=== PATIENT | female | born 1935 | race American Indian/Alaskan Native ===

== ENCOUNTER 2017-06-27 12:48 | Inpatient (IN) | payer MEDICARE, MEDICAID ==
--- NOTE | 2017-06-27 13:32 | ED PDOC ---
Arrival/HPI - General Chief Complaint: Back Pain Time Seen by Provider: 06/27/17 12:51 Historian: Patient - History of Present Illness Narrative History of Present Illness (Text): 06/27/17 13:31 An 81 year old female, whose past medical history includes aortic aneurysm repair and hypertension, presents to the emergency department complaining of sudden onset right flank, right lower back and right abdominal region discomfort for the past 4 days. Patient states movement, changing position and muscular movement causes more pain. Patient describes pain as severe. Patient also describes left knee pain, different than her usual arthritic discomfort. Reports she ran out of her Percocet medications recently and has not had anything for relieve. Denies any trauma or sick contact. Patient arrived to the emergency department for further evaluation. Patient states she is scheduled to see her PMD next week but her pain is getting worse. Patient lives alone and has a health aide daily for 5 hours a day, and changes on weekends, but due to her worsening pain, pt is unable to care for herself today, prompting patient to call 911. Patient denies any shortness of breath, chest pain, palpitations, nausea, vomiting. urinary or bowel changes or any other complaints at this time. PMD: Dr. Levy pt lives alone pt usually ambulates with a cane pt is ambidextrous Time/Duration: Other (4 days) Symptom Onset: Sudden Symptom Course: Unchanged Activities at Onset: Rest Context: Home Past Medical History - Provider Review Nursing Documentation Reviewed: Yes - Travel History Have you recently traveled outside [place] w/in the past 3 mons?: No - Past History Past History: No Previous - Infectious Disease Hx of Infectious Diseases: None - Tetanus Immunization Tetanus Immunization: Unknown - Reproductive Menopause: Yes Currently : No - Cardiac Hx Hypertension: Yes - Pulmonary Hx Respiratory Disorders: No - Neurological Hx Neurological Disorder: Yes Hx Dizziness: Yes (SYNCOPE,VERTIGO) - HEENT Hx HEENT Disorder: No - Renal Hx Renal Disorder: No - Endocrine/Metabolic Hx Endocrine Disorders: No - Hematological/Oncological Hx Blood Disorders: No - Integumentary Hx Dermatological Disorder: No - Musculoskeletal/Rheumatological Hx Arthritis: Yes - Gastrointestinal Hx Gastrointestinal Disorders: Yes Hx Gastroesophageal Reflux: Yes - Genitourinary/Gynecological Hx Genitourinary Disorders: No - Psychiatric Hx Psychophysiologic Disorder: Yes Hx Anxiety: Yes Hx Depression: Yes Hx Emotional Abuse: No Hx Physical Abuse: No Hx Substance Use: No - Surgical History Other/Comment: AAA repair may - Anesthesia Hx Anesthesia Reactions: Yes Hx Malignant Hyperthermia: No - Suicidal Assessment Feels Threatened In Home Enviroment: No Family/Social History - Physician Review Nursing Documentation Reviewed: Yes Family/Social History: No Known Family HX Smoking Status: Former Smoker Hx Alcohol Use: Yes (H/O QUIT ETOH USE) Hx Substance Use: No Hx Substance Use Treatment: No Allergies/Home Meds Allergies/Adverse Reactions: Allergies Iodine and Iodide Containing Produc Allergy (Intermediate, Verified 06/27/17 22: 12) RASH shellfish derived Allergy (Intermediate, Verified 06/27/17 22:12) RASH tomato Allergy (Intermediate, Verified 06/27/17 22:12) RASH IV CONTRAST Allergy (Intermediate, Uncoded 06/27/17 22:12) RASH Home Medications: Home Meds Medication Instructions Recorded Confirmed Aspirin [Ecotrin] 81 mg PO DAILY 04/13/15 06/27/17 Escitalopram [Lexapro] 20 mg PO QAM 04/13/15 06/27/17 Metoprolol Tartrate 25 mg PO BID 04/13/15 06/27/17 Potassium Chloride [Klor-Con 10] 10 meq PO QAM 04/13/15 06/27/17 Pravastatin Sodium [Pravachol] 40 mg PO HS 04/13/15 06/27/17 Furosemide [Lasix] 40 mg PO DAILY 06/27/17 06/27/17 Gabapentin [Neurontin] 100 mg PO TID 06/27/17 06/27/17 Ibuprofen/Oxycodone HCl 1 tab PO Q8 PRN 06/27/17 06/27/17 [Oxycodone-Ibuprofen 5-400 Tab] Review of Systems - Physician Review All systems were reviewed & negative as marked: Yes - Review of Systems Constitutional: Normal Eyes: Normal ENT: Normal Respiratory: absent: SOB Cardiovascular: absent: Chest Pain, Palpitations Gastrointestinal: Abdominal Pain (right abd discomfort). absent: Stool Changes , Nausea, Vomiting Genitourinary Female: absent: Urine Output Changes Musculoskeletal: Back Pain (right lower back discomfort), Other (right flank discomfort; left knee pain) Skin: Normal Neurological: Normal Endocrine: Normal Hemo/Lymphatic: Normal Psychiatric: Normal Physical Exam Vital Signs Reviewed: Yes Vital Signs Temp Pulse Resp BP Pulse Ox 06/27/17 18:09 97.8 F 59 L 20 134/72 98 06/27/17 16:22 98 F 75 19 139/71 98 06/27/17 14:52 98 F 75 19 152/71 H 97 06/27/17 12:49 98.7 F 62 18 161/96 H 100 Temperature: Afebrile Blood Pressure: Hypertensive Pulse: Regular Respiratory Rate: Normal Appearance: Positive for: Well-Appearing, Non-Toxic, Uncomfortable, Other (at times uncomfortable due to right flank pain, resting in bed, alert/awake, GCS = 15, oriented x 3, cooperative) Pain Distress: None Mental Status: Positive for: Alert and Oriented X 3 - Systems Exam Head: Present: Atraumatic, Normocephalic Pupils: Present: PERRL, Other (no nystagmus, no photophobia, sclera anicteric, visual field intact b/l) Extroacular Muscles: Present: EOMI Conjunctiva: Present: Normal Ears: Present: Normal Mouth: Present: Moist Mucous Membranes, Other (fair dentitions, no drooling/ stridor, no exudate/lesions, no dysphonia) Pharnyx: Present: Normal Nose (External): Present: Atraumatic Nose (Internal): Present: Normal Inspection Neck: Present: Normal Range of Motion, Trachea Midline, Other (no step off, no midline tenderness). No: Meningeal Signs, MIDLINE TENDERNESS Respiratory/Chest: Present: Clear to Auscultation, Good Air Exchange, Other ( CTA b/l, no w/r/r, no accessory muscle use, no tachypenia). No: Respiratory Distress, Accessory Muscle Use Cardiovascular: Present: Regular Rate and Rhythm, Normal S1, S2, Other (+S1, +S2 ). No: Murmurs Abdomen: Present: Normal Bowel Sounds, Other (well nourished/obese female, + right flank/abd tenderness is noted on exam, no astorga's sign, no mcburney's point tenderness, no masses/rebound/guarding/rigidity). No: Tenderness, Distention, Peritoneal Signs Back: Present: Normal Inspection, Other (no step off). No: CVA Tenderness, Midline Tenderness Upper Extremity: Present: Normal Inspection, Normal ROM, NORMAL PULSES, Neurovascularly Intact. No: Cyanosis, Edema Lower Extremity: Present: Normal Inspection, NORMAL PULSES, Neurovascularly Intact. No: Edema Neurological: Present: GCS=15, CN II-XII Intact, Speech Normal, Other (CNII-XII WNL, no facial asymmetries, no slurr speech, oriented x 3) Skin: Present: Warm, Dry, Normal Color. No: Rashes Psychiatric: Present: Alert, Oriented x 3, Normal Insight, Normal Concentration Medical Decision Making ED Course and Treatment: 06/27/17 13:28 Impression: An 81 year old female with right flank, right lower back and right abd region discomfort. Statement: I have considered all of the differential diagnostics regarding patient's chief medical complaints/ clinical findings, including but not limited to: unlikely disection r/o aneurysm/ disection changes muscular skeletal discomfort with chronic arthritic pain unlikely appendicitis, but will check CT Assessment for A/ P -- CT angio disection -- Left knee -- Chest X-ray -- labs 06/27/17 16:45 Patient received pain medication, felt improvement of pain. 06/27/17 17:40 Patient is currently experiencing more right flank back pain, and now requesting pain assistance. 06/27/17 17:[address] Taveras, made aware of patient's medical complaints, emergency department presentation, emergency department management and diagnosis and agrees with admission. Patient will likely be placed on Medsurge. 1800 pt is unable to ambulate without assistance pt does not feel improve and expressed concern going home pt is made aware of her medical results pt agrees with admission Re-evaluation Time: 18:00 Reassessment Condition: Improving,but remains with symptoms - Lab Interpretations Lab Results: 06/27/17 13:32 06/27/17 13:32 Lab Results 06/27/17 14:15: Urine Color Straw, Urine Appearance Clear, Urine pH 7.0, Ur Specific [place] 1.010, Urine Protein Negative, Urine Glucose (UA) Negative, Urine Ketones Negative, Urine Blood Negative, Urine Nitrate Negative, Urine Bilirubin Negative, Urine Urobilinogen 0.2, Ur Leukocyte Esterase Negative 06/27/17 13:32: Sodium 142, Potassium 4.6, Chloride 102, Carbon Dioxide 29, Anion Gap 15, BUN 14, Creatinine 1.1, Est GFR ( Amer) 58, Est GFR (Non- Af Amer) 48, Random Glucose 93, Calcium 9.3, Total Bilirubin 0.5, AST 37 H, ALT 26, Alkaline Phosphatase 80, Troponin I < 0.01, Total Protein 7.3, Albumin 4.2, Globulin 3.2, Albumin/Globulin Ratio 1.3, Lipase 217 06/27/17 13:32: PT 13.4 H, INR 1.17 H, APTT 31.9 06/27/17 13:32: WBC 5.5, RBC 4.71, Hgb 13.4, Hct 40.8, MCV 86.6, MCH 28.5, MCHC 32.8, RDW 15.3 H, Plt Count 184, MPV 10.7, Gran % 53.5, Lymph % (Auto) 35.0, Lynn % (Auto) 7.3 H, Eos % (Auto) 4.0, Baso % (Auto) 0.2, Gran # 2.92, Lymph # ( Auto) 1.9, Lynn # (Auto) 0.4, Eos # (Auto) 0.2, Baso # (Auto) 0.01 I have reviewed the lab results: Yes Interpretation: All labs normal - RAD Interpretation Narrative RAD Interpretations (Text): 06/27/17 16:05 CHEST RADIOGRAPH, 1 VIEW Creator : Eduardo Chaudhary MD FINDINGS: LUNGS: Clear. PLEURA: No pneumothorax or pleural fluid seen. CARDIOVASCULAR: Normal heart size. Sternotomy wires noted. OSSEOUS STRUCTURES: No significant abnormalities. VISUALIZED UPPER ABDOMEN: Normal. IMPRESSION: No active disease. 06/27/17 16:07 Left Knee Radiographs Creator : Eduardo Chaudhary MD FINDINGS: BONES: Normal. No fracture. 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 No articular erosions. JOINT EFFUSION: None. IMPRESSION: Tricompartmental osteoarthritis. No fracture. 06/27/17 16:27 CT Chest, Abdomen and Pelvis without intravenous contrast COMPARISON: CT abdomen/ pelvis 04/17/2015 TECHNIQUE: Radiation dose: Total exam DLP = 1009.13 mGy-cm. This CT exam was performed using one or more of the following dose reduction techniques: Automated exposure control, adjustment of the mA and/or kV according to patient size, and/or use of iterative reconstruction technique. FINDINGS: CT CHEST WITHOUT CONTRAST: LUNGS: No infiltrate. Left lower lobe linear scar/ atelectasis. No pulmonary mass. MEDIASTINUM: Aneurysmal dilatation of the ascending thoracic aorta to a diameter of 4.7 cm. Marked dilatation of the main pulmonary artery to a diameter of 5.0 cm. Please correlate with any history of pulmonary arterial hypertension. Cardiomegaly. LYMPH NODES: Unremarkable. PLEURA: Unremarkable. No pneumothorax. No pleural fluid. BONES: Unremarkable. OTHER FINDINGS: None. CT ABDOMEN AND PELVIS: LIVER: Unremarkable. No gross lesion or ductal dilatation. GALLBLADDER AND BILE DUCTS: Unremarkable. PANCREAS: Unremarkable. No gross lesion or ductal dilatation. SPLEEN: Unremarkable. ADRENALS: Unremarkable. No mass. KIDNEYS AND URETERS: Stable left upper pole cortical cyst, approximately 2.2 cm diameter. Developmental malrotation of both kidneys. No calculus or hydronephrosis. 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 Aorto bi-iliac stent noted. Mild aneurysmal dilatation of distal abdominal aorta just proximal to the iliac bifurcation. BOWEL: Sigmoid diverticulosis without evidence of diverticulitis. No bowel obstruction. No other abnormal bowel loops. APPENDIX: Normal appendix. PERITONEUM: No ascites or pneumoperitoneum. Paraumbilical ventral hernia containing only mesenteric fat. LYMPH NODES: Unremarkable. No enlarged lymph nodes. BLADDER: Unremarkable. REPRODUCTIVE: Status post hysterectomy BONES: No acute fracture. OTHER FINDINGS: None. IMPRESSION: Limited evaluation of thoracic and abdominal aorta given the absence of intravenous contrast administration. Status post aorto bi-iliac stent. 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 No pulmonary infiltrate/ effusion. Cardiomegaly and markedly dilated main pulmonary artery. Additional minor findings as above. 06/28/17 18:00 U/S abd - limited study, NO obvious endoleak noted Radiology Orders: 06/27/17 13:24 KNEE LEFT 2 VIEWS (AP & LAT) [RAD] Stat 06/27/17 13:25 CHEST ONE VIEW [RAD] Stat 06/27/17 15:07 CHEST,ABDOMEN, PELVIS W/O CONT [CT] Stat 06/27/17 15:39 AORTA, IVC, ILIAC DUPLEX [US] Stat Collaborative Teacher: Radiologist - Medication Orders Current Medication Orders: Aspirin (Ecotrin) 81 mg PO DAILY [facility] Last Admin: 06/28/17 09:53 Dose: 81 mg Escitalopram Oxalate (Lexapro) 20 mg PO QAM [facility] Last Admin: 06/28/17 09:53 Dose: 20 mg Furosemide (Lasix) 40 mg PO DAILY [facility] Last Admin: 06/28/17 09:55 Dose: 40 mg MAR Blood Pressure Document 06/28/17 09:55 Y (Rec: 06/28/17 09:55 [id number]) Blood Pressure Blood Pressure (100/60-150/90) 141/85 Gabapentin (Neurontin) 100 mg PO TID [facility] PRN Reason: Protocol Last Admin: 06/28/17 09:53 Dose: 100 mg Behavioural Document 06/28/17 09:53 Y (Rec: 06/28/17 09:54 [id number]) Maintenance Maintenance Dose Yes Insulin Human Lispro (Humalog Low) 0 units SC [facility] PRN Reason: Protocol Metoprolol Tartrate (Lopressor) 25 mg PO BID [facility] Last Admin: 06/28/17 09:55 Dose: 25 mg MAR Pulse and Blood Pressure Document 06/28/17 09:55 Y (Rec: 06/28/17 09:55 [id number]) Pulse Pulse Rate (60-90) 50 Blood Pressure Blood Pressure (100/60-150/90) 141/85 Morphine Sulfate (Morphine) 2 mg IVP Q6H PRN PRN Reason: Pain, severe (8-10) Last Admin: 06/28/17 08:35 Dose: 2 mg MAR Pain Assessment Document 06/28/17 08:35 Y (Rec: 06/28/17 08:35 [id number] Pain Reassessment Is this a pain reassessment? No Sleep Is patient sleeping during reassessment? No Presence of Pain Presence of Pain Yes Pain Scale Used Pain Scale Used Numeric Location Left, Right or Bilateral Right Pain Location Body Site Abdomen Description Intensity of Pain at present 8 Radiation Location lower back IVP Administration Document 06/28/17 08:35 Y (Rec: 06/28/17 08:35 [id number]) Charges for Administration # of IVP Administrations 1 Oxycodone HCl (Oxycodone Immediate Release Tab) 5 mg PO Q6H PRN PRN Reason: Pain, moderate (4-7) Potassium Chloride (Klor-Con 10) 10 meq PO QAM [facility] Last Admin: 06/28/17 09:53 Dose: 10 meq Discontinued Medications Morphine Sulfate (Morphine) 4 mg IVP STAT STA Stop: 06/27/17 13:25 Last Admin: 06/27/17 14:05 Dose: 4 mg MAR Pain Assessment Document 06/27/17 14:05 GMI (Rec: 06/27/17 14:06 GMI [id number]) Pain Reassessment Is this a pain reassessment? Yes Sleep Is patient sleeping during reassessment? No Presence of Pain Presence of Pain Yes Pain Scale Used Pain Scale Used Numeric Location Left, Right or Bilateral Right Pain Location Body Site Hip Description Description Sharp Intensity of Pain at present 9 Pain Behavior Facial Grimacing Aggravating Factors Changing Position Alleviating Factors/Management Medication Techniques Distraction Alleviating Factors Medication IVP Administration Document 06/27/17 14:05 GMI (Rec: 06/27/17 14:06 GMI [id number]) Charges for Administration # of IVP Administrations 1 Re-Assess: MAR Pain Assessment Document 06/27/17 15:05 GMI (Rec: 06/27/17 17:57 GMI [id number]) Pain Reassessment Is this a pain reassessment? Yes Sleep Is patient sleeping during reassessment? No Presence of Pain Presence of Pain Yes Pain Scale Used Pain Scale Used Numeric Location Upper or Lower Lower Pain Location Body Site Back Description Description Acute Intensity of Pain at present 7 Pain Behavior Facial Grimacing Aggravating Factors Changing Position Alleviating Factors Medication Morphine Sulfate (Morphine) 2 mg IVP Q6H PRN PRN Reason: Pain, severe (8-10) Oxycodone/Acetaminophen (Percocet 5/325 Mg Tab) 1 tab PO STAT STA Stop: 06/27/17 17:46 Last Admin: 06/27/17 17:59 Dose: 1 tab MAR Pain Assessment Document 06/27/17 17:59 GMI (Rec: 06/27/17 18:01 GMI [id number]) Pain Reassessment Is this a pain reassessment? Yes Sleep Is patient sleeping during reassessment? No Presence of Pain Presence of Pain Yes Pneumococcal Polyvalent Vaccine (Pneumovax 23 Vaccine) 0.5 ml IM .ONCE ONE Stop: 06/27/17 23:13 - Scribe Statement The provider has reviewed the documentation as recorded by the Sarah Stephenson Provider Scribe Attestation: All medical record entries made by the Scribe were at my direction and personally dictated by me. I have reviewed the chart and agree that the record accurately reflects my personal performance of the history, physical exam, medical decision making, and the department course for this patient. I have also personally directed, reviewed, and agree with the discharge instructions and disposition. Disposition/Present on Arrival - Present on Arrival Any Indicators Present on Arrival: No History of DVT/PE: No History of Uncontrolled Diabetes: No Urinary Catheter: No History of Decub. Ulcer: No History Surgical Site Infection Following: None - Disposition Have Diagnosis and Disposition been Completed?: Yes Diagnosis: Ambulatory dysfunction, Flank pain, Acute exacerbation of chronic low back pain Disposition: HOSPITALIZED Disposition Time: 18:00 Patient Plan: Admission Patient Problems: Current Active Problems Problem Status Onset Ambulatory dysfunction Acute Flank pain Acute Acute exacerbation of chronic low back pain Acute Condition: STABLE
[2017-06-27 14:05] LABS: BASO # 0.01 K/mm3 (0.0-2.0); BASO % 0.2 % (0.0-3.0); EOS # 0.2 (0.0-0.7); GRAN # 2.92 (1.4-6.5); GRAN % 53.5 % (50.0-68.0); HEMOGLOBIN 13.4 g/dL (12.0-16.0); LYMPH # 1.9 (1.2-3.4); MEAN CELL VOLUME 86.6 fl (80.0-105.0); MEAN CORPUSCULAR HEMOGLOBIN 28.5 pg (25.0-35.0); MEAN CORPUSCULAR HGB CONC 32.8 g/dl (31.0-37.0); MEAN PLATELET VOLUME 10.7 fl (7.0-11.0); MONO # 0.4 (0.1-0.6); MONO % 7.3 % (1.0-6.0); RBC 4.71 10^6/uL (3.5-6.1); RED CELL DISTRIBUTION WIDTH 15.3 % (11.5-14.5); WHITE BLOOD COUNT 5.5 10^3/ul (4.5-11.0)
[2017-06-27 14:15] LABS: INR 1.17 (0.93-1.08); PARTIAL THROMBOPLASTIN TIME 31.9 Seconds (25.1-36.5); PROTHROMBIN TIME 13.4 SECONDS (9.4-12.5)
[2017-06-27 14:19] LABS: ALB/GLOB RATIO 1.3 (1.1-1.8); ALBUMIN 4.2 g/dL (3.0-4.8); CALCIUM 9.3 mg/dL (8.4-10.5); GFR AFRICAN-AMERICAN 58; GFR NON-AFRICAN AMERICAN 48; LIPASE 217 U/L (23-300)
[2017-06-27 14:20] LABS: ALT/SGPT 26 U/L (7-56); AST/SGOT 37 U/L (14-36); BLOOD UREA NITROGEN 14 mg/dL (7-21)
[2017-06-27 14:28] LABS: TROPONIN I < 0.01 ng/mL
[2017-06-27 14:45] LABS: URINE APPEARANCE CLEAR (CLEAR); URINE BILIRUBIN NEGATIVE (NEGATIVE); URINE BLOOD NEGATIVE (NEGATIVE); URINE COLOR STRAW (YELLOW); URINE GLUCOSE (UA) NEGATIVE (NEGATIVE); URINE LEUKOCYTE ESTERASE NEGATIVE Leu/uL (NEGATIVE); URINE PROTEIN NEGATIVE mg/dL (<30 mg/dL); URINE UROBILINOGEN 0.2 E.U./dL (<1 E.U./dL)
--- NOTE | 2017-06-27 16:04 | RAD ---
PROCEDURE: CHEST RADIOGRAPH, 1 VIEW HISTORY: weakness COMPARISON: 07/06/2015 FINDINGS: LUNGS: Clear. PLEURA: No pneumothorax or pleural fluid seen. CARDIOVASCULAR: Normal heart size. Sternotomy wires noted. OSSEOUS STRUCTURES: No significant abnormalities. VISUALIZED UPPER ABDOMEN: Normal. OTHER FINDINGS: None. IMPRESSION: No active disease.
--- NOTE | 2017-06-27 16:05 | RAD ---
PROCEDURE: Left Knee Radiographs. HISTORY: Pain. COMPARISON: None. FINDINGS: BONES: Normal. No fracture. 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 No articular erosions. JOINT EFFUSION: None. OTHER FINDINGS: None. IMPRESSION: Tricompartmental osteoarthritis. No fracture.
--- NOTE | 2017-06-27 16:26 | CT ---
PROCEDURE: CT Chest, Abdomen and Pelvis without intravenous contrast HISTORY: hx of AAA/dissection COMPARISON: CT abdomen/ pelvis 04/17/2015 TECHNIQUE: Radiation dose: Total exam DLP = 1009.13 mGy-cm. This CT exam was performed using one or more of the following dose reduction techniques: Automated exposure control, adjustment of the mA and/or kV according to patient size, and/or use of iterative reconstruction technique. FINDINGS: CT CHEST WITHOUT CONTRAST: LUNGS: No infiltrate. Left lower lobe linear scar/ atelectasis. No pulmonary mass. MEDIASTINUM: Aneurysmal dilatation of the ascending thoracic aorta to a diameter of 4.7 cm. Marked dilatation of the main pulmonary artery to a diameter of 5.0 cm. Please correlate with any history of pulmonary arterial hypertension. Cardiomegaly. LYMPH NODES: Unremarkable. PLEURA: Unremarkable. No pneumothorax. No pleural fluid. BONES: Unremarkable. OTHER FINDINGS: None. CT ABDOMEN AND PELVIS: LIVER: Unremarkable. No gross lesion or ductal dilatation. GALLBLADDER AND BILE DUCTS: Unremarkable. PANCREAS: Unremarkable. No gross lesion or ductal dilatation. SPLEEN: Unremarkable. ADRENALS: Unremarkable. No mass. KIDNEYS AND URETERS: Stable left upper pole cortical cyst, approximately 2.2 cm diameter. Developmental malrotation of both kidneys. No calculus or hydronephrosis. 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 Aorto bi-iliac stent noted. Mild aneurysmal dilatation of distal abdominal aorta just proximal to the iliac bifurcation. BOWEL: Sigmoid diverticulosis without evidence of diverticulitis. No bowel obstruction. No other abnormal bowel loops. APPENDIX: Normal appendix. PERITONEUM: No ascites or pneumoperitoneum. Paraumbilical ventral hernia containing only mesenteric fat. LYMPH NODES: Unremarkable. No enlarged lymph nodes. BLADDER: Unremarkable. REPRODUCTIVE: Status post hysterectomy BONES: No acute fracture. OTHER FINDINGS: None. IMPRESSION: Limited evaluation of thoracic and abdominal aorta given the absence of intravenous contrast administration. Status post aorto bi-iliac stent. 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 No pulmonary infiltrate/ effusion. Cardiomegaly and markedly dilated main pulmonary artery. Additional minor findings as above.
[2017-06-27] MEDS ORDERED: Oxycodone/Acetaminophen 5/325 mg Tab PO STA (17:45)
[2017-06-27] MEDS ORDERED: Morphine 2 mg/2 mL syringe IVP PRN (18:48)
[2017-06-27] MEDS ORDERED: oxyCODONE 5 mg Immediate Release Tab PO PRN (18:49)
--- NOTE | 2017-06-27 19:02 | CP.PCM.HP ---
<Nixon Ortega - Last Filed: 06/28/17 07:22> History of Present Illness - History of Present Illness History of Present Illness: IM H&P for Hospitalist Service CC: Right abdominal pain x4 days, worsening L knee pain for several weeks. This is an 81yo AA F with PMH of HTN, DM, CAD s/p stents and CABG with Aortic valve replacement (non-specified, but not on AC so likely bioprosthesis), GERD, Left knee Osteoarthritis, and AAA s/p endovascular stenting and repair who presents with complaint of worsening left knee pain for several weeks and right sided abdominal pain radiating into right flank x several days. Pt reports both pains worse with movement, and both improved with rest. Unable to clearly define the abdominal into flank pain, but denies sensation of stabbing or tearing. Denies nausea, emesis, worse with respiration, and not worsened by palpation on exam. Reports knee pain worsening for several weeks, despite use of cane and walker at home, normally follows Dr. Teresa for her knee. Reports normally getting injections every 6 months for the knee, next is in ~1 month, but reports shots becoming less effective. Also reports hx of cardiac arrest during most recent L knee arthroscopic procedure (date unclear). Maintains regular followup with Dr. Ramon for her AAA, reports no recent changes, and CT Chest/Abd/Pelvis notes stable aneurysm without acute change since last exam. Pt denies shortness of breath, chest pain, nausea, emesis, dysuria, hematuria, diarrhea, fevers, chills, syncope/presyncope. Does admit to intermittent numbness in legs (due to DM), and reports decreased UE strength R>L (although at baseline R is stronger than left due to prior rotator cuff injury to left) after fall on right side approximately 3 weeks prior. Denies any other falls, any head trauma. Denies numbness/paresthesias of the upper extremities, or acute loss of function. All other ROS in 12-system review negative. PMH: as above PSH: pt reports 13 surgeries; as noted by pt or prior charting: appendectomy, several L knee arthroscopies, CABG, AV replacement, Cardiac cath with stents, endovascular AAA repair with stenting Fam Hx: non-contributory Soc Hx: former smoker and former EtOH use (both quit > 5 yrs prior), denies ever illicits/IVDA PMD: Dr. Levy Ortho: Dr. Teresa Vascular: Dr. Ramon Cardio: Dr. Rodriguez Present on Admission - Present on Admission Any Indicators Present on Admission: No History of DVT/PE: No History of Uncontrolled Diabetes: No Urinary Catheter: No Review of Systems - Review of Systems All systems: reviewed and no additional remarkable complaints except (as per HPI ) Past Patient History - Infectious Disease Hx of Infectious Diseases: None - Tetanus Immunizations Tetanus Immunization: Unknown - Past Social History Smoking Status: Former Smoker - CARDIAC Hx Hypertension: Yes - PULMONARY Hx Respiratory Disorders: No - NEUROLOGICAL Hx Neurological Disorder: Yes Hx Dizziness: Yes (SYNCOPE,VERTIGO) - HEENT Hx HEENT Problems: No - RENAL Hx Chronic Kidney Disease: No - ENDOCRINE/METABOLIC Hx Endocrine Disorders: No - HEMATOLOGICAL/ONCOLOGICAL Hx Blood Disorders: No - INTEGUMENTARY Hx Dermatological Problems: No - MUSCULOSKELETAL/RHEUMATOLOGICAL Hx Arthritis: Yes - GASTROINTESTINAL Hx Gastrointestinal Disorders: Yes Hx Gastroesophageal Reflux: Yes - GENITOURINARY/GYNECOLOGICAL Hx Genitourinary Disorders: No - PSYCHIATRIC Hx Psychophysiologic Disorder: Yes Hx Anxiety: Yes Hx Depression: Yes Hx Emotional Abuse: No Hx Physical Abuse: No Hx Substance Use: No - SURGICAL HISTORY Other/Comment: AAA repair may - ANESTHESIA Hx Anesthesia Reactions: Yes Hx Malignant Hyperthermia: No Meds Allergies/Adverse Reactions: Allergies Allergy/AdvReac Type Severity Reaction Status Date / Time Iodine and Iodide Containing Allergy Intermediate RASH Verified 06/27/17 22:12 Produc shellfish derived Allergy Intermediate RASH Verified 06/27/17 22:12 tomato Allergy Intermediate RASH Verified 06/27/17 22:12 IV CONTRAST Allergy Intermediate RASH Uncoded 06/27/17 22:12 Physical Exam - Constitutional Appears: Non-toxic, No Acute Distress, Chronically Ill - Head Exam Head Exam: ATRAUMATIC, NORMAL INSPECTION, NORMOCEPHALIC - Eye Exam Eye Exam: EOMI, Normal appearance. absent: Conjunctival injection, Scleral icterus Pupil Exam: absent: Irregular, Unequal - ENT Exam ENT Exam: Mucous Membranes Moist - Neck Exam Neck exam: Positive for: Normal Inspection - Respiratory Exam Respiratory Exam: Clear to Auscultation Bilateral, NORMAL BREATHING PATTERN. absent: Decreased Breath Sounds, Rales, Rhonchi, Wheezes - Cardiovascular Exam Cardiovascular Exam: REGULAR RHYTHM, RRR, +S1, +S2. absent: Bradycardia, Tachycardia, Irregular Rhythm, JVD, +S4 - GI/Abdominal Exam GI & Abdominal Exam: Normal Bowel Sounds, Soft. absent: Distended, Firm, Pulsatile Mass (hx of AAA (s/p endovasc repair), did not feel on palpation) Additional comments: right upper abdominal pain with radiation to right flank/inferior axilla area, no tenderness to palpation - Extremities Exam Extremities exam: Positive for: normal inspection. Negative for: calf tenderness - Neurological Exam Neurological exam: Alert, Oriented x3 - Psychiatric Exam Psychiatric exam: Normal Affect, Normal Mood - Skin Skin Exam: Dry, Intact, Normal Color, Warm Results - Vital Signs Recent Vital Signs: Last Vital Signs Temp 97.8 F 06/27/17 18:09 Pulse 59 L 06/27/17 18:09 Resp 20 06/27/17 18:09 BP 134/72 06/27/17 18:09 Pulse Ox 98 06/27/17 18:09 - Labs Result Diagrams: 06/27/17 13:32 06/27/17 13:32 Assessment & Plan - Assessment and Plan (Free Text) Assessment: This is an 81yo AA F with PMH of HTN, DM, CAD s/p stents and CABG with Aortic valve replacement (non-specified, but not on AC so likely bioprosthesis), GERD, Left knee Osteoarthritis, and AAA s/p endovascular stenting and repair who presents with complaint of worsening left knee pain for several weeks and right sided abdominal pain radiating into right flank x several days. Plan: 1) L knee pain -likely 2/2 OA and running out of home Percocet -Knee x-ray only notable for tricompartment OA -pain control with PRN oxycodone and PRN morphine for breakthrough pain -PT/OT -Pt refusing GUNNAR, already has home with services, but needs more hours at home, Case management referral placed 2) R abdomen/flank pain -MSK vs constipation, unlikely cholecystitis given lack of pain on palpation ( negative Flower's sign), no leukocytosis or fever -Pain worse with movement as per pt, more consistent with MSK -pain control as above, if no relief can consider addition of a muscle relaxant -PT/OT 3) Hx HTN -continue home metoprolol and lasix 4) Hx CAD -continue metoprolol and ASA 5) Hx DM -heart healthy consistent carb diet -Lispro ISS with fingersticks achs 6) Hx AAA -stable on imaging, unchanged from prior size on prior scans -no acute interventions indicated at this time -maintain BP control, goal is SBP < 140 Dispo: Med/Surg, pending PT assessment FEN: Heart-healthy consistent carb Access: Peripheral IVs Consults: PT Ppx: protonix for GI, SCD for DVT Patient seen and examined with attending, Dr. Taveras Decision To Admit - Pt Status Changed To: Hospital Disposition Of: Inpatient Admission - Admit Certification Admit to Inpatient:: After my assessment, the patient will require hospitalization for at least two midnights. This is because of the severity of symptoms shown, intensity of services needed, and/or the medical risk in this patient being treated as an outpatient. - . Bed Request Type: Med/Surg <Tato Taveras - Last Filed: 06/28/17 08:13> Results - Vital Signs Recent Vital Signs: Last Vital Signs Temp 97.8 F 06/27/17 22:48 Pulse 59 L 06/27/17 22:48 Resp 20 06/27/17 22:48 BP 134/72 06/27/17 22:48 Pulse Ox 97 06/27/17 19:30 - Labs Result Diagrams: 06/27/17 13:32 06/27/17 13:32 Attending/Attestation - Attestation I have personally seen and examined this patient.: Yes I have fully participated in the care of the patient.: Yes I have reviewed all pertinent clinical information: Yes Notes (Text): 06/27/17 81 year old female with past medical history of hypertension, diabetes, arthritis, CAD s/p stents and CABG and history of AAA s/p endovascular stenting who presents with complaint of right sided aboominal pain and left knee pain. She states pains are chronic but worsened over past few days after she ran out of her medications. CT chest/abdomen/pelvis shows stable aneurysm without acute changes from prior study. Aortic ultrasound was done with pending read. Knee xray show arthritis without fracture. She lives alone and with home services but feels she may need more assistance upon discharge. Will admit for intractable pain and weakness. Continue with analgesics prn as needed. PT evaluation is requested. She will need outpatient vascular surgery and orthopedic follow up. Tato Taveras MD Hospitalist.
[2017-06-27] MEDS: Morphine 4 mg/ml ISec IVP PRN (21:18)
[2017-06-27 23:12] VITALS: BMI 31.7
[2017-06-27] MEDS ORDERED: Pneumococcal 23-Valent Vaccine IM ONE (23:12)
[2017-06-28] MEDS: Morphine 4 mg/ml ISec IVP PRN ×4 (02:40→21:34)
--- NOTE | 2017-06-28 09:20 | CARD ---
APPROVED REPORT EKG Measurement Heart [id number] <Conclusion> RSR PVCs RVCD PRWP. Possible septal TX, old LAHB NSSTW changes No change
[2017-06-28] MEDS: Potassium Chloride 10 mEq ER Tab PO SCH (09:53)
--- NOTE | 2017-06-28 11:23 | US ---
PROCEDURE: 1. Duplex ultrasound of the abdominal aorta. HISTORY: Abdominal aortic aneurysm. Status post aortic stent graft placement PHYSICIAN(S): Eduardo Mayer MD. FINDINGS: The exam is very limited due to bowel gas and body habitus. Further evaluation with a CT scan with and without IV contrast would be useful. There appears to be a bifurcated infrarenal abdominal aortic stent graft present. No obvious endoleak is seen of the imaging is very limited. The common iliac arteries are dilated with patent iliac limbs. IMPRESSION: 1. Very limited study. 2. Infrarenal abdominal aortic bifurcated stent graft. 3. No obvious endoleak but the exam is very limited.
--- NOTE | 2017-06-28 12:04 | CP.PCM.PN ---
<JosueRonni - Last Filed: 06/28/17 12:01> Subjective - Date & Time of Evaluation Date of Evaluation: 06/28/17 Time of Evaluation: 12:01 - Subjective Subjective: Patient was seen and examined this AM at bedside. Patient reports left knee pain. Reports pain is under control. Reports worse with movement and is hesitant to work with PT due to discomfort. Denies chest pain, shortness of breath, diarrhea. Patient does indicate mild improvement in abdominal pain. Objective - Vital Signs/Intake and Output Vital Signs (last 24 hours): Temp Pulse Resp BP Pulse Ox 97.8 F 50 L 20 141/85 97 06/27/17 22:48 06/28/17 09:55 06/27/17 22:48 06/28/17 09:55 06/27/17 19:30 - Medications Medications: Current Medications Aspirin (Ecotrin) 81 mg PO DAILY [facility] Last Admin: 06/28/17 09:53 Dose: 81 mg Escitalopram Oxalate (Lexapro) 20 mg PO QAM [facility] Last Admin: 06/28/17 09:53 Dose: 20 mg Furosemide (Lasix) 40 mg PO DAILY [facility] Last Admin: 06/28/17 09:55 Dose: 40 mg Gabapentin (Neurontin) 100 mg PO TID [facility] PRN Reason: Protocol Last Admin: 06/28/17 09:53 Dose: 100 mg Insulin Human Lispro (Humalog Low) 0 units SC ACHS [facility] PRN Reason: Protocol Metoprolol Tartrate (Lopressor) 25 mg PO BID [facility] Last Admin: 06/28/17 09:55 Dose: 25 mg Morphine Sulfate (Morphine) 2 mg IVP Q6H PRN PRN Reason: Pain, severe (8-10) Last Admin: 06/28/17 08:35 Dose: 2 mg Oxycodone HCl (Oxycodone Immediate Release Tab) 5 mg PO Q6H PRN PRN Reason: Pain, moderate (4-7) Potassium Chloride (Klor-Con 10) 10 meq PO QAM [facility] Last Admin: 06/28/17 09:53 Dose: 10 meq - Labs Labs: PT 13.4 SECONDS (9.4-12.5) H 06/27/17 13:32 INR 1.17 (0.93-1.08) H 06/27/17 13:32 APTT 31.9 Seconds (25.1-36.5) 06/27/17 13:32 - Head Exam Head Exam: ATRAUMATIC, NORMAL INSPECTION, NORMOCEPHALIC - Eye Exam Eye Exam: EOMI, PERRL - ENT Exam ENT Exam: Mucous Membranes Moist - Respiratory Exam Respiratory Exam: Clear to Ausculation Bilateral, NORMAL BREATHING PATTERN. absent: Rhonchi, Wheezes - Cardiovascular Exam Cardiovascular Exam: REGULAR RHYTHM, +S1, +S2 - GI/Abdominal Exam GI & Abdominal Exam: Soft, Normal Bowel Sounds Additional comments: Mild right upper abdominal pain, diminished since presentation - Extremities Exam Extremities Exam: Full ROM - Neurological Exam Neurological Exam: Alert, Awake, Oriented x3 - Psychiatric Exam Psychiatric exam: Normal Affect, Normal Mood - Skin Skin Exam: Dry, Warm Assessment and Plan - Assessment and Plan (Free Text) Assessment: 81yo AA F with PMH of HTN, DM, CAD s/p stents and CABG with Aortic valve replacement GERD, Left knee Osteoarthritis, and AAA s/p endovascular stenting and repair who presented with complaint of worsening left knee pain for several weeks and right sided abdominal pain radiating into right flank for several days. Patient admitted for intractable pain and evaluation. Plan: Left knee pain Details: - Hx of OA and lack of home pain meds - Knee x-ray: Tricompartment OA - Pt refusing GUNNAR due to home with services Plan: - Case management referral - PT/OT for evaluation of services - Oxycodone and morphine - Outpatient orthopedic evaluation Right abdominal pain Details: - Etiology: MSK vs. constipation Plan: - Pain management - PT/OT HTN Details: - Metropolol, lasix at home Plan: - Continue home meds - Adjust as necessary CAD Details: - Hx CAD s/p stents, CABG Plan: - metoplrolol, ASA AAA Details: -s/p endovascular stenting and repair Plan: - Stable per imaging - Unchanged from prior size on prior scans - maintain Bp control, SBP goal <140 - outpatient vascular follow up GI/DVT ppx: - protonix - SCD Case and Plan discussed with attending Johanna Salas PGY-1 <Tato Taveras - Last Filed: 06/28/17 15:01> Objective - Vital Signs/Intake and Output Vital Signs (last 24 hours): Temp Pulse Resp BP Pulse Ox 97.8 F 50 L 20 141/85 97 06/27/17 22:48 06/28/17 09:55 06/27/17 22:48 06/28/17 09:55 06/27/17 19:30 - Medications Medications: Current Medications Aspirin (Ecotrin) 81 mg PO DAILY [facility] Last Admin: 06/28/17 09:53 Dose: 81 mg Escitalopram Oxalate (Lexapro) 20 mg PO QAM [facility] Last Admin: 06/28/17 09:53 Dose: 20 mg Furosemide (Lasix) 40 mg PO DAILY [facility] Last Admin: 06/28/17 09:55 Dose: 40 mg Gabapentin (Neurontin) 100 mg PO TID [facility] PRN Reason: Protocol Last Admin: 06/28/17 14:41 Dose: Not Given Insulin Human Lispro (Humalog Low) 0 units SC ACHS [facility] PRN Reason: Protocol Last Admin: 06/28/17 14:37 Dose: Not Given Metoprolol Tartrate (Lopressor) 25 mg PO BID [facility] Last Admin: 06/28/17 09:55 Dose: 25 mg Morphine Sulfate (Morphine) 2 mg IVP Q6H PRN PRN Reason: Pain, severe (8-10) Last Admin: 06/28/17 08:35 Dose: 2 mg Oxycodone HCl (Oxycodone Immediate Release Tab) 5 mg PO Q6H PRN PRN Reason: Pain, moderate (4-7) Potassium Chloride (Klor-Con 10) 10 meq PO QAM [facility] Last Admin: 06/28/17 09:53 Dose: 10 meq - Labs Labs: PT 13.4 SECONDS (9.4-12.5) H 06/27/17 13:32 INR 1.17 (0.93-1.08) H 06/27/17 13:32 APTT 31.9 Seconds (25.1-36.5) 06/27/17 13:32 Attending/Attestation - Attestation I have personally seen and examined this patient.: Yes I have fully participated in the care of the patient.: Yes I have reviewed all pertinent clinical information, including history, physical exam and plan: Yes Notes (Text): 06/28/17 14:59 81 year old female with past medical history of hypertension, diabetes, arthritis, CAD s/p stents and CABG and history of AAA s/p endovascular stenting who presented with complaint of right sided aboominal pain and left knee pain. CT chest/abdomen/pelvis showed stable aneurysm without acute changes from prior study. Aortic ultrasound was reviewed as well. Knee xray showed arthritis without fracture. She lives alone and with home services but feels she may need more assistance upon discharge. Physical therapy evaluation is pending. Will also discuss with pillowcase folder / oncology social worker tomorrow. Continue with analgesics prn for pain. She will need outpatient vascular surgery and orthopedic follow up. Tato Taveras MD Hospitalist.
[2017-06-28] MEDS: Insulin Lispro (humaLOG) LOW Coverage SC SCH ×3 (14:37→22:00)
[2017-06-29] MEDS: Morphine 4 mg/ml ISec IVP PRN ×2 (03:43→10:03)
[2017-06-29] MEDS: Insulin Lispro (humaLOG) LOW Coverage SC SCH ×2 (08:37→17:40)
[2017-06-29] MEDS: Potassium Chloride 10 mEq ER Tab PO SCH (10:03)
--- NOTE | 2017-06-29 14:18 | CP.PCM.DIS ---
Provider - Provider Date of Admission: 06/27/17 17:41 Attending physician: Tato Taveras MD Primary care physician: Glen Levy MD Time Spent in preparation of Discharge (in minutes): 40 Diagnosis - Discharge Diagnosis (1) Acute exacerbation of chronic low back pain Status: Acute (2) Ambulatory dysfunction Status: Acute (3) Flank pain Status: Acute Hospital Course - Lab Results Lab Results: Most Recent Lab Values WBC 5.5 10^3/ul (4.5-11.0) 06/27/17 13:32 RBC 4.71 10^6/uL (3.5-6.1) 06/27/17 13:32 Hgb 13.4 g/dL (12.0-16.0) 06/27/17 13:32 Hct 40.8 % (36.0-48.0) 06/27/17 13:32 MCV 86.6 fl (80.0-105.0) 06/27/17 13:32 MCH 28.5 pg (25.0-35.0) 06/27/17 13:32 MCHC 32.8 g/dl (31.0-37.0) 06/27/17 13:32 RDW 15.3 % (11.5-14.5) H 06/27/17 13:32 Plt Count 184 10^3/uL (120.0-450.0) 06/27/17 13:32 MPV 10.7 fl (7.0-11.0) 06/27/17 13:32 Gran % 53.5 % (50.0-68.0) 06/27/17 13:32 Lymph % (Auto) 35.0 % (22.0-35.0) 06/27/17 13:32 [place] % (Auto) 7.3 % (1.0-6.0) H 06/27/17 13:32 Eos % (Auto) 4.0 % (1.5-5.0) 06/27/17 13:32 Baso % (Auto) 0.2 % (0.0-3.0) 06/27/17 13:32 Gran # 2.92 (1.4-6.5) 06/27/17 13:32 Lymph # (Auto) 1.9 (1.2-3.4) 06/27/17 13:32 [place] # (Auto) 0.4 (0.1-0.6) 06/27/17 13:32 Eos # (Auto) 0.2 (0.0-0.7) 06/27/17 13:32 Baso # (Auto) 0.01 K/mm3 (0.0-2.0) 06/27/17 13:32 PT 13.4 SECONDS (9.4-12.5) H 06/27/17 13:32 INR 1.17 (0.93-1.08) H 06/27/17 13:32 APTT 31.9 Seconds (25.1-36.5) 06/27/17 13:32 Sodium 142 mmol/L (132-148) 06/27/17 13:32 Potassium 4.6 mmol/L (3.6-5.0) 06/27/17 13:32 Chloride 102 mmol/L (98-107) 06/27/17 13:32 Carbon Dioxide 29 mmol/L (21-33) 06/27/17 13:32 Anion Gap 15 (10-20) 06/27/17 13:32 BUN 14 mg/dL (7-21) 06/27/17 13:32 Creatinine 1.1 mg/dl (0.7-1.2) 06/27/17 13:32 Est GFR ( Amer) 58 06/27/17 13:32 Est GFR (Non-Af Amer) 48 06/27/17 13:32 POC Glucose (mg/dL) 122 mg/dL (65-110) H 06/29/17 11:09 Random Glucose 93 mg/dL (70-110) 06/27/17 13:32 Calcium 9.3 mg/dL (8.4-10.5) 06/27/17 13:32 Total Bilirubin 0.5 mg/dL (0.2-1.3) 06/27/17 13:32 AST 37 U/L (14-36) H 06/27/17 13:32 ALT 26 U/L (7-56) 06/27/17 13:32 Alkaline Phosphatase 80 U/L (38-126) 06/27/17 13:32 Troponin I < 0.01 ng/mL 06/27/17 13:32 Total Protein 7.3 g/dL (5.8-8.3) 06/27/17 13:32 Albumin 4.2 g/dL (3.0-4.8) 06/27/17 13:32 Globulin 3.2 gm/dL 06/27/17 13:32 Albumin/Globulin Ratio 1.3 (1.1-1.8) 06/27/17 13:32 Lipase 217 U/L (23-300) 06/27/17 13:32 Urine Color Straw (YELLOW) 06/27/17 14:15 Urine Appearance Clear (CLEAR) 06/27/17 14:15 Urine pH 7.0 (4.7-8.0) 06/27/17 14:15 Ur Specific [place] 1.010 (1.005-1.035) 06/27/17 14:15 Urine Protein Negative mg/dL (<30 mg/dL) 06/27/17 14:15 Urine Glucose (UA) Negative mg/dL (NEGATIVE) 06/27/17 14:15 Urine Ketones Negative mg/dL (NEGATIVE) 06/27/17 14:15 Urine Blood Negative (NEGATIVE) 06/27/17 14:15 Urine Nitrate Negative (NEGATIVE) 06/27/17 14:15 Urine Bilirubin Negative (NEGATIVE) 06/27/17 14:15 Urine Urobilinogen 0.2 E.U./dL (<1 E.U./dL) 06/27/17 14:15 Ur Leukocyte Esterase Negative Mara/uL (NEGATIVE) 06/27/17 14:15 - Hospital Course Hospital Course: Patient is an 81yo AA F with PMH of HTN, DM, CAD s/p stents and CABG with Aortic valve replacement (non-specified, but not on AC so likely bioprosthesis) , GERD, Left knee Osteoarthritis, and AAA s/p endovascular stenting and repair who presented to [facility] with complaints of worsening left knee pain for several weeks and right sided abdominal pain radiating into right flank x several days. Pt reported both pains worsened with movement, and both improved with rest. Unable to clearly define the abdominal into flank pain, but denies sensation of stabbing or tearing. Patient denied nausea, emesis, worse with respiration, and not worsened by palpation on exam. Patient reported knee pain worsening for several weeks, despite use of cane and walker at home, normally follows Dr. Teresa for her knee. CT Chest/Abd/Pelvis notes stable aneurysm without acute change since last exam. Patient was admitted for persistent knee pain and ambulatory dysfunction as well as history of abdominal aneurysm that was stable per imaging. Physical therapy evalauted the patinet and recommended home with servces. Case management and social workers were consulted and helped with patient setting up services. Discharge planning, medication reconciliation, and follow up upon discharge were discussed with patient. Patient was agreeable. At time of discharge patient was medically appropriate for follow up outpatient. - Date & Time of H&P Date of H&P: 06/27/17 Time of H&P: 18:50 Discharge Exam - Head Exam Head Exam: ATRAUMATIC, NORMAL INSPECTION, NORMOCEPHALIC - Eye Exam Eye Exam: EOMI, PERRL - Respiratory Exam Respiratory Exam: Clear to PA & Lateral, UNREMARKABLE - Cardiovascular Exam Cardiovascular Exam: REGULAR RHYTHM, +S1, +S2 - GI/Abdominal Exam GI & Abdominal Exam: Normal Bowel Sounds, Soft, Tenderness (mild right sided tenderness on palpation) - Extremities Exam Extremities exam: normal capillary refill - Neurological Exam Neurological exam: Alert, Oriented x3 - Psychiatric Exam Psychiatric exam: Normal Affect, Normal Mood - Skin Skin Exam: Dry, Warm Discharge Plan - Follow Up Plan Condition: STABLE Disposition: HOME/ ROUTINE Additional Instructions: Take all medications as prescribed to you Follow up with your primary care physician within 1 to 2 weeks upon discharge Follow up with case management at [facility] for physical therapy home services Continue with current diet Referrals: Glen Levy MD [Primary Care Provider] -
[2017-06-29 16:23] VITALS: BP 138/85; PULSE 64; RESP 20; TEMP 98.2; O2SAT 92
== END 2017-06-29 17:48 | disposition home health service (06) | DRG 554 ==
LOC: ED 12:48 → ERH 17:41 → 5RSO 19:59
PROVIDERS: ADMIT Internal Medicine; ATTEND Internal Medicine
DX: M17.12 Unilateral primary osteoarthritis, left knee (principal); K21.9 Gastro-esophageal reflux disease without esophagitis; I11.9 Hypertensive heart disease without heart failure; I71.4 Abdominal aortic aneurysm, without rupture; I25.10 Atherosclerotic heart disease of native coronary artery without angina pectoris; E11.9 Type 2 diabetes mellitus without complications; R10.9 Unspecified abdominal pain; G89.29 Other chronic pain; M54.5 Low back pain; Z95.1 Presence of aortocoronary bypass graft; Z95.5 Presence of coronary angioplasty implant and graft; Z95.3 Presence of xenogenic heart valve; Z79.82 Long term (current) use of aspirin; Z86.74 Personal history of sudden cardiac arrest; Z87.891 Personal history of nicotine dependence

== ENCOUNTER 2017-12-18 15:11 | Observation (INO) | payer MEDICARE, MEDICAID ==
[2017-12-18 15:28] VITALS: BMI 32.1
--- NOTE | 2017-12-18 15:32 | ED PDOC ---
Arrival/HPI - General Chief Complaint: Chest Pain Time Seen by Provider: 12/18/17 15:16 Historian: Patient - History of Present Illness Narrative History of Present Illness (Text): 12/18/17 15:31 A 82 year old female, whose past medical history includes an aortic aneurysm repair, pulmonary embolism, and hypertension, presents to the emergency department complaining of mid sternal chest tightness since earlier today. Patient reports symptoms are intermittent for the past 3 hours. Patient reports experiencing nausea and vomiting 5 times yesterday but today patient is only experiencing nausea. Patient denies any fever, chills, shortness of breath, diarrhea, urinary symptoms, back pain, neck pain, headache, dizziness, or any other complaints. Time/Duration: 24 hours (yesterday) Symptom Onset: Gradual Symptom Course: Improving Activities at Onset: Light Context: Home Past Medical History - Provider Review Nursing Documentation Reviewed: Yes - Past History Past History: No Previous - Infectious Disease Hx of Infectious Diseases: None - Tetanus Immunization Tetanus Immunization: Unknown - Cardiac Hx Cardiac Disorders: Yes Hx Hypertension: Yes - Pulmonary Hx Respiratory Disorders: No - Neurological Hx Neurological Disorder: Yes Hx Dizziness: Yes (SYNCOPE,VERTIGO) - HEENT Hx HEENT Disorder: No - Renal Hx Renal Disorder: No - Endocrine/Metabolic Hx Endocrine Disorders: No - Hematological/Oncological Hx Blood Disorders: No - Integumentary Hx Dermatological Disorder: No - Musculoskeletal/Rheumatological Hx Musculoskeletal Disorders: Yes Hx Arthritis: Yes - Gastrointestinal Hx Gastrointestinal Disorders: Yes Hx Gastroesophageal Reflux: Yes - Genitourinary/Gynecological Hx Genitourinary Disorders: No - Psychiatric Hx Psychophysiologic Disorder: Yes Hx Anxiety: Yes Hx Depression: Yes Hx Substance Use: No - Surgical History Other/Comment: AAA repair may - Anesthesia Hx Anesthesia Reactions: Yes Hx Malignant Hyperthermia: No - Suicidal Assessment Feels Threatened In Home Enviroment: No Family/Social History - Physician Review Nursing Documentation Reviewed: Yes Family/Social History: Unknown Family HX Smoking Status: Former Smoker Hx Alcohol Use: Yes (H/O QUIT ETOH USE) Hx Substance Use: No Hx Substance Use Treatment: No Allergies/Home Meds Allergies/Adverse Reactions: Allergies Iodine and Iodide Containing Produc Allergy (Intermediate, Verified 12/18/17 15:26) RASH shellfish derived Allergy (Intermediate, Verified 12/18/17 15:26) RASH tomato Allergy (Intermediate, Verified 12/18/17 15:26) RASH IV CONTRAST Allergy (Intermediate, Uncoded 12/18/17 15:26) RASH Home Medications: Home Meds Medication Instructions Recorded Confirmed Aspirin [Ecotrin] 81 mg PO DAILY 04/13/15 12/18/17 Escitalopram [Lexapro] 20 mg PO QAM 04/13/15 12/18/17 Metoprolol Tartrate 25 mg PO BID 04/13/15 12/18/17 Potassium Chloride [Klor-Con 10] 10 meq PO QAM 04/13/15 12/18/17 Pravastatin Sodium [Pravachol] 40 mg PO HS 04/13/15 12/18/17 Furosemide [Lasix] 40 mg PO DAILY 06/27/17 12/18/17 Gabapentin [Neurontin] 100 mg PO DAILY 06/27/17 12/18/17 Ibuprofen/Oxycodone HCl 1 tab PO Q8 PRN 06/27/17 12/18/17 [Oxycodone-Ibuprofen 5-400 Tab] ALPRAZolam [Xanax] 0.25 mg PO QID 06/29/17 12/18/17 Apixaban [Eliquis] 2.5 mg PO BID 06/29/17 12/18/17 Review of Systems - Physician Review All systems were reviewed & negative as marked: Yes - Review of Systems Constitutional: absent: Fevers, Night Sweats Cardiovascular: Chest Pain (+mid sternum chest tightness) Gastrointestinal: Nausea, Vomiting. absent: Diarrhea Genitourinary Female: absent: Urine Output Changes Musculoskeletal: absent: Back Pain, Neck Pain Neurological: absent: Headache, Dizziness Physical Exam Vital Signs Reviewed: Yes Vital Signs Temp Pulse Resp BP Pulse Ox 12/18/17 15:20 98.1 F 59 L 19 131/73 98 Temperature: Afebrile Blood Pressure: Normal Pulse: Bradycardic Respiratory Rate: Normal Appearance: Positive for: Well-Appearing, Non-Toxic, Comfortable Pain Distress: None Mental Status: Positive for: Alert and Oriented X 3 - Systems Exam Head: Present: Atraumatic, Normocephalic Pupils: Present: PERRL Extroacular Muscles: Present: EOMI Conjunctiva: Present: Normal Mouth: Present: Moist Mucous Membranes Neck: Present: Normal Range of Motion Respiratory/Chest: Present: Clear to Auscultation, Good Air Exchange. No: Respiratory Distress, Accessory Muscle Use Cardiovascular: Present: Regular Rate and Rhythm, Normal S1, S2. No: Murmurs Abdomen: No: Tenderness, Distention, Peritoneal Signs Back: Present: Normal Inspection Upper Extremity: Present: Normal Inspection. No: Cyanosis, Edema Lower Extremity: Present: Edema (+trace lower extremity edema), NORMAL PULSES, Normal ROM. No: CALF TENDERNESS, Cyanosis, Osman's Sign, Tenderness, Swelling, Erythema, Deformity, Temperature Abnormalties, Neurovascularly Intact, Capillary Refill < 2 s Neurological: Present: GCS=15, CN II-XII Intact, Speech Normal Skin: Present: Warm, Dry, Normal Color. No: Rashes Psychiatric: Present: Alert, Oriented x 3, Normal Insight, Normal Concentration Medical Decision Making ED Course and Treatment: 12/18/17 15:32 Impression: An 82 year old female presenting to the Emergency department complaining of chest pain. Differential Diagnosis included but are not limited to: Chest Pain, rule out ACS vs Reflux/Gastritis Plan: -- EKG -- Labs -- CBC -- COAGs -- Chest X-ray -- Reassess and disposition Prior Visits: Notes and results from previous visits were reviewed. Progress Notes: 12/18/17 15:36 EKG: Ordered, reviewed, and independently interpreted the EKG. Rate : 56 BPM Rhythm : Sinus bradycardia Interpretation : 1 degree AV block, PAC, left axis deviation, and incomplete left bundle. Comparison : Chart from 06/27/17 12/18/17 17:04 Procedure: Chest X-ray Impression: Severe cardiomegaly. Median sternotomy wires. Ectatic aorta. Dictator: Paige Crystal MD 12/18/17 17:49 Patient does not want an IV contrast study because she states that she gets hives. Clinical history and exam most consistant with beverley, less likely cardiac. Case discussed with Dr. Aaron who agreed to obtain a CT without contrast and she will be monitored in telemetry. - RAD Interpretation Radiology Orders: 12/18/17 15:26 CHEST PORTABLE [RAD] Stat - Scribe Statement The provider has reviewed the documentation as recorded by the Scribe Chanell Chong All medical record entries made by the Scribe were at my direction and personally dictated by me. I have reviewed the chart and agree that the record accurately reflects my personal performance of the history, physical exam, medical decision making, and the department course for this patient. I have also personally directed, reviewed, and agree with the discharge instructions and disposition. Disposition/Present on Arrival - Present on Arrival Any Indicators Present on Arrival: No History of DVT/PE: No History of Uncontrolled Diabetes: No Urinary Catheter: No History of Decub. Ulcer: No History Surgical Site Infection Following: None - Disposition Have Diagnosis and Disposition been Completed?: Yes Diagnosis: Chest pain Disposition: HOSPITALIZED Disposition Time: 17:42 Patient Plan: Observation Condition: FAIR Discharge Instructions (ExitCare): Chest Pain (ED) Forms: [employer] (Swedish)
[2017-12-18 15:50] LABS: BASO # 0.01 K/mm3 (0.0-2.0); BASO % 0.2 % (0.0-3.0); EOS # 0.2 (0.0-0.7); EOS % 3.7 % (1.5-5.0); GRAN # 2.52 (1.4-6.5); GRAN % 47.2 % (50.0-68.0); HEMOGLOBIN 12.2 g/dL (12.0-16.0); LYMPH % 36.4 % (22.0-35.0); MEAN CELL VOLUME 87.8 fl (80.0-105.0); MEAN CORPUSCULAR HEMOGLOBIN 28.1 pg (25.0-35.0); MONO # 0.7 (0.1-0.6); MONO % 12.5 % (1.0-6.0); RBC 4.34 10^6/uL (3.5-6.1); RED CELL DISTRIBUTION WIDTH 14.6 % (11.5-14.5); WHITE BLOOD COUNT 5.4 10^3/ul (4.5-11.0)
[2017-12-18 15:55] LABS: INR 1.31; PARTIAL THROMBOPLASTIN TIME 32.5 Seconds (25.1-36.5)
[2017-12-18 15:57] LABS: BLOOD UREA NITROGEN 17 mg/dL (7-21); GFR NON-AFRICAN AMERICAN 43
[2017-12-18 15:58] LABS: ALB/GLOB RATIO 1.1 (1.1-1.8); ALBUMIN 3.7 g/dL (3.0-4.8); ALT/SGPT 22 U/L (7-56); AST/SGOT 25 U/L (14-36); CALCIUM 8.9 mg/dL (8.4-10.5)
[2017-12-18 16:09] LABS: B-TYPE NATRIURETIC PEPTIDE 1330 pg/mL (0-450); TROPONIN I < 0.01 ng/mL
[2017-12-18] MEDS ORDERED: Oxycodone/Acetaminophen 5/325 mg Tab PO STA (16:12)
[2017-12-18] MEDS ORDERED: Potassium Chloride 20 mEq ER Tab PO STA (16:21)
--- NOTE | 2017-12-18 16:29 | RAD ---
HISTORY: chest pain COMPARISON: Chest x-ray performed 06/27/17 TECHNIQUE: Chest, one view. FINDINGS: Examination limited by habitus. LUNGS: No focal consolidation. Please note that chest x-ray has limited sensitivity for the detection of pulmonary masses. PLEURA: No significant pleural effusion identified. No definite pneumothorax . CARDIOVASCULAR: Median sternotomy wires. Severe cardiomegaly. Ectatic aorta. OSSEOUS STRUCTURES: No acute osseous abnormality identified. VISUALIZED UPPER ABDOMEN: Unremarkable. OTHER FINDINGS: None. IMPRESSION: Severe cardiomegaly. Median sternotomy wires. Ectatic aorta.
[2017-12-18] MEDS ORDERED: DiphenhydrAMINE 50 mg/ml Inj IVP STA (16:59)
--- NOTE | 2017-12-18 18:20 | CT ---
Date of service: 12/18/2017 PROCEDURE: CT Chest, Abdomen and Pelvis without intravenous contrast HISTORY: chest/abdominal pain; h/o AAA COMPARISON: 06/27/2017. CT chest abdomen pelvis TECHNIQUE: Radiation dose: Total exam DLP = 1501.67 mGy-cm. This CT exam was performed using one or more of the following dose reduction techniques: Automated exposure control, adjustment of the mA and/or kV according to patient size, and/or use of iterative reconstruction technique. FINDINGS: CT CHEST WITHOUT CONTRAST: LUNGS: Clear. No nodule, mass or consolidation. MEDIASTINUM: Dilated main pulmonary artery 5.5 cm consistent with pulmonary arterial hypertension. Stable aneurysmal dilatation ascending aorta 4.6 cm. Cardiomegaly. No evidence of acute, significant cardiovascular disease. No pericardial effusion identified. LYMPH NODES: Unremarkable. PLEURA: Unremarkable. No pneumothorax. No pleural fluid. BONES: Unremarkable. OTHER FINDINGS: None. CT ABDOMEN AND PELVIS: LIVER: Unremarkable. No gross lesion or ductal dilatation. GALLBLADDER AND BILE DUCTS: Unremarkable. PANCREAS: Unremarkable. No gross lesion or ductal dilatation. SPLEEN: Unremarkable. ADRENALS: Unremarkable. No mass. KIDNEYS AND URETERS: Unremarkable. No hydronephrosis. No solid mass. VASCULATURE: Stable position, configuration aorto bi-iliac stent graft. Stable aneurysmal dilatation left internal iliac artery. This measures 5 cm. BOWEL: Diverticulosis without an acute inflammatory component or other associated pathologic process. APPENDIX: Normal appendix. PERITONEUM: Unremarkable. No free fluid. No free air. LYMPH NODES: Unremarkable. No enlarged lymph nodes. BLADDER: Unremarkable. REPRODUCTIVE: Prior hysterectomy. BONES: No acute fracture. Stable multilevel degenerative changes thoracolumbar spine. OTHER FINDINGS: Anterior midline periumbilical hernia containing fat only. IMPRESSION: Stable findings with respect to ascending thoracic aorta. Cardiomegaly. No evidence of acute, significant cardiovascular disease. Stable findings main pulmonary artery consistent with pulmonary arterial hypertension. Stable findings aorto bi-iliac endo graft. Additional benign and/or incidental findings described above. Limitations of the current examination: Absence of intravenous contrast precludes optimal assessment of thoraco abdominal and pelvic arterial system.
[2017-12-18] MEDS ORDERED: Dextrose 50% SYRINGE Inj (50 ml) IV PRN (18:50)
--- NOTE | 2017-12-18 18:55 | CP.PCM.HP ---
<Bruna Cooney - Last Filed: 12/18/17 20:56> History of Present Illness - History of Present Illness History of Present Illness: PGY-1 Bruna Cooney D.O. H&P for Dr. Aaron's service: Janice Isidro is an 82 yo female with a history of CAD with stents and CABG, aortic aneurysm repair, T2DM, AV replacement, HTN, OA with chronic back pain, and GERD who presented with epigastric pain and nausea and vomiting. Patient states that she had 5 episodes of vomiting yesterday and was unable to tolerate any PO intake. Denies hematemesis. Denies diarrhea or constipation. Patient is still complaining of nausea but denies any vomiting today. She endorses epigastric pain with palpation. Denies chest pain, palpitations, SOB, fever or chills. Utilizes a cane at baseline. PMH: CAD with stents and CABG, T2DM, HTN, OA with chronic back pain, GERD PSH: AV replacement, aortic aneurysm repair Meds: see MAR, confirmed with [facility] on day of admission (12/18/17) All: iodine, IV contrast, shellfish, tomato FH: reviewed and noncontributory SH: lives in [facility] building denies alcohol, tobacco, illicit drug use 7 kids- 1 son nearby PMD: Milrded Cardio: Michael Present on Admission - Present on Admission Any Indicators Present on Admission: No History of DVT/PE: No History of Uncontrolled Diabetes: No Urinary Catheter: No Decubitus Ulcer Present: No History Surgical Site Infection Following: None Review of Systems - Constitutional Constitutional: absent: Chills, Fatigue, Fever, Headache, Weakness - EENT Eyes: absent: Change in Vision Ears: absent: Decreased Hearing, Tinnitus Nose/Mouth/Throat: absent: Nasal Congestion, Sore Throat - Cardiovascular Cardiovascular: Pedal Edema (R>L). absent: Chest Pain, Diaphoresis, Dyspnea - Respiratory Respiratory: absent: Cough, Dyspnea, Hemoptysis - Gastrointestinal Gastrointestinal: As Per HPI, Abdominal Pain, Dyspepsia, Heartburn, Nausea, Vomiting. absent: Constipation, Diarrhea, Dysphagia - Genitourinary Genitourinary: absent: Dysuria, Hematuria - Reproductive: Female Reproductive:Female: Post Menopausal - Menstruation Menstruation: Post Menopausal - Musculoskeletal Musculoskeletal: Arthralgias (chronic). absent: Numbness, Tingling - Integumentary Integumentary: absent: Lesions - Neurological Neurological: absent: Dizziness, Focal Weakness, Headaches, Paresthesias, Radicular Pain, Tremor, Vertigo, Weakness - Psychiatric Psychiatric: Anxiety. absent: Depression - Endocrine Endocrine: absent: Fatigue, Palpitations - Hematologic/Lymphatic Hematologic: absent: Easy Bleeding, Easy Bruising, Lymphadenopathy Past Patient History - Infectious Disease Hx of Infectious Diseases: None - Tetanus Immunizations Tetanus Immunization: Unknown - Past Medical History & Family History Past Medical History?: Yes Past Family History: Reviewed and not pertinent - Past Social History Smoking Status: Never Smoked Chewing Tobacco Use: No Cigar Use: No Alcohol: None Drugs: Denies Home Situation {Lives}: Alone ([facility]) - CARDIAC Hx Cardiac Disorders: Yes Hx Hypertension: Yes - PULMONARY Hx Respiratory Disorders: No - NEUROLOGICAL Hx Neurological Disorder: Yes Hx Dizziness: Yes (SYNCOPE,VERTIGO) - HEENT Hx HEENT Problems: No - RENAL Hx Chronic Kidney Disease: No - ENDOCRINE/METABOLIC Hx Endocrine Disorders: No - HEMATOLOGICAL/ONCOLOGICAL Hx Blood Disorders: No - INTEGUMENTARY Hx Dermatological Problems: No - MUSCULOSKELETAL/RHEUMATOLOGICAL Hx Musculoskeletal Disorders: Yes Hx Arthritis: Yes - GASTROINTESTINAL Hx Gastrointestinal Disorders: Yes Hx Gastroesophageal Reflux: Yes - GENITOURINARY/GYNECOLOGICAL Hx Genitourinary Disorders: No - PSYCHIATRIC Hx Psychophysiologic Disorder: Yes Hx Anxiety: Yes Hx Depression: Yes Hx Substance Use: No - SURGICAL HISTORY Other/Comment: AAA repair may - ANESTHESIA Hx Anesthesia Reactions: Yes Hx Malignant Hyperthermia: No Meds Allergies/Adverse Reactions: Allergies Allergy/AdvReac Type Severity Reaction Status Date / Time Iodine and Iodide Containing Allergy Intermediate RASH Verified 12/18/17 15:26 Produc shellfish derived Allergy Intermediate RASH Verified 12/18/17 15:26 tomato Allergy Intermediate RASH Verified 12/18/17 15:26 IV CONTRAST Allergy Intermediate RASH Uncoded 12/18/17 15:26 Physical Exam - Head Exam Head Exam: ATRAUMATIC, NORMAL INSPECTION - Eye Exam Eye Exam: EOMI, Normal appearance, PERRL - ENT Exam ENT Exam: Mucous Membranes Moist, Normal Exam - Neck Exam Neck exam: Positive for: Normal Inspection - Respiratory Exam Respiratory Exam: Clear to Auscultation Bilateral, NORMAL BREATHING PATTERN - Cardiovascular Exam Cardiovascular Exam: REGULAR RHYTHM, +S1, +S2 - GI/Abdominal Exam GI & Abdominal Exam: Normal Bowel Sounds, Soft, Tenderness (epigastric). absent: Distended, Rebound, Rigid - Rectal Exam Rectal Exam: Deferred - Extremities Exam Extremities exam: Positive for: normal inspection, pedal edema (R>L), pedal pulses present - Back Exam Back exam: NORMAL INSPECTION - Neurological Exam Neurological exam: Alert, CN II-XII Intact, Oriented x3 - Psychiatric Exam Psychiatric exam: Normal Affect, Normal Mood - Skin Skin Exam: Dry, Intact, Normal Color, Warm Results - Vital Signs Recent Vital Signs: Last Vital Signs Temp 98.1 F 12/18/17 15:20 Pulse 79 12/18/17 18:38 Resp 18 12/18/17 18:38 BP 158/59 H 12/18/17 18:38 Pulse Ox 98 12/18/17 18:38 - Labs Result Diagrams: 12/18/17 15:30 12/18/17 15:30 Labs: Laboratory Results - last 24 hr 12/18/17 12/18/17 12/18/17 15:30 15:30 15:30 WBC 5.4 RBC 4.34 Hgb 12.2 Hct 38.1 MCV 87.8 MCH 28.1 MCHC 32.0 RDW 14.6 H Plt Count 146 MPV 10.0 Gran % 47.2 L Lymph % (Auto) 36.4 H Overton % (Auto) 12.5 H Eos % (Auto) 3.7 Baso % (Auto) 0.2 Gran # 2.52 Lymph # (Auto) 2.0 Overton # (Auto) 0.7 H Eos # (Auto) 0.2 Baso # (Auto) 0.01 PT 15.0 H INR 1.31 APTT 32.5 Sodium 139 Potassium 3.5 L Chloride 102 Carbon Dioxide 28 Anion Gap 12 BUN 17 Creatinine 1.2 Est GFR ( Amer) 52 Est GFR (Non-Af Amer) 43 Random Glucose 110 Calcium 8.9 Magnesium 1.9 Total Bilirubin 0.3 AST 25 ALT 22 Alkaline Phosphatase 72 Lactate Dehydrogenase 557 Total Creatine Kinase 220 Troponin I < 0.01 NT-Pro-B Natriuret Pep 1330 H Total Protein 7.0 Albumin 3.7 Globulin 3.3 Albumin/Globulin Ratio 1.1 - EKG Data EKG Interpreted by: ER Physician EKG shows normal: Sinus rhythm Rate: Normal Assessment & Plan - Assessment and Plan (Free Text) Assessment: Patient is an 82 yo female with a significant cardiac history who presented with epigastric pain and N/V x1 day. Patient's history is consistent with PUD but cardiac etiology must be ruled out. Plan: Epigastric pain- suspect PUD, r/o cardiac etiology - CT chest/abd/pelvis: cardiomegaly, pulm artery HTN, bi-iliac endo graft - Troponin negative x1- trend Q6H - EKG: sinus bradycardia, no ST changes- trend Q6H - Echo pending - Tylenol 650 MG PO Q6H PRN - Percocet 5/325 mg PO Q6H PRN - Cardiology consulted (Michael) Nausea and vomiting - Zofran 4 mg IV Q6H PRN - Carafate 1 g PO daily T2DM - Accuchecks ACHS - Hypoglycemia protocol - ISS medium CAD- h/o CABG, stents, aortic aneurysm repair - ASA EC 81 mg PO daily - Lipitor 10 mg PO QHS HTN - Lasix 20 mg PO TID - KCl 10 mEq PO daily - Metoprolol 25 mg PO BID - Valsartan 320 mg PO daily AV replacement - Eliquis 2.5 mg PO BID Anxiety - Lexapro 20 mg PO daily - Xanax 0.25 mg PO QID PRN IVF: not indicated Diet: heart healthy GI ppx: Protonix 40 mg IV daily VTE ppx: Eliquis 2.5 mg PO BID, SCDs Code status: full code Case discussed with attending, Dr. Aaron. <Bebeto Aaron - Last Filed: 12/19/17 18:53> Results - Vital Signs Recent Vital Signs: Last Vital Signs Temp 98.7 F 12/19/17 12:00 Pulse 67 12/19/17 14:00 Resp 18 12/19/17 12:00 BP 152/80 H 12/19/17 14:22 Pulse Ox 95 12/19/17 06:00 - Labs Result Diagrams: 12/19/17 03:30 12/19/17 03:30 Labs: Laboratory Results - last 24 hr 12/18/17 12/18/17 12/19/17 22:16 22:32 03:30 WBC RBC Hgb Hct MCV MCH MCHC RDW Plt Count MPV Gran % Lymph % (Auto) Overton % (Auto) Eos % (Auto) Baso % (Auto) Gran # Lymph # (Auto) Overton # (Auto) Eos # (Auto) Baso # (Auto) Sodium 143 Potassium 3.8 Chloride 103 Carbon Dioxide 33 Anion Gap 10 BUN 17 Creatinine 1.1 Est GFR ( Amer) 57 Est GFR (Non-Af Amer) 47 POC Glucose (mg/dL) 138 H Random Glucose 105 Calcium 9.1 Phosphorus 3.9 Magnesium 1.9 Total Bilirubin 0.4 AST 26 ALT 22 Alkaline Phosphatase 74 Troponin I < 0.01 < 0.01 Total Protein 6.7 Albumin 3.5 Globulin 3.2 Albumin/Globulin Ratio 1.1 12/19/17 12/19/17 12/19/17 03:30 07:39 11:08 WBC 5.6 RBC 4.39 Hgb 12.3 Hct 38.3 MCV 87.2 MCH 28.0 MCHC 32.1 RDW 14.6 H Plt Count 144 MPV 9.9 Gran % 45.0 L Lymph % (Auto) 42.5 H Overton % (Auto) 9.2 H Eos % (Auto) 3.1 Baso % (Auto) 0.2 Gran # 2.51 Lymph # (Auto) 2.4 Overton # (Auto) 0.5 Eos # (Auto) 0.2 Baso # (Auto) 0.01 Sodium Potassium Chloride Carbon Dioxide Anion Gap BUN Creatinine Est GFR ( Amer) Est GFR (Non-Af Amer) POC Glucose (mg/dL) 144 H 165 H Random Glucose Calcium Phosphorus Magnesium Total Bilirubin AST ALT Alkaline Phosphatase Troponin I Total Protein Albumin Globulin Albumin/Globulin Ratio Attending/Attestation - Attestation I have personally seen and examined this patient.: Yes I have fully participated in the care of the patient.: Yes I have reviewed all pertinent clinical information: Yes Notes (Text): 12/19/17 18:50 Medical record note made by the resident after discussion with my direction and input after the patient was personally seen and examined by me. I have reviewed the chart and agree that the record accurately reflects by personal performance of the history, physical exam, data review, and medical decision-making, in the course for the patient. I have also personally directed the plan of care. 81 year old female with PMH of hypertension, diabetes, arthritis, CAD s/p antonino nts and CABG and history of AAA s/p endovascular stenting,OA presented with epigastric pain and nausea and vomiting. Patient states that she had 5 episodes of vomiting yesterday and was unable to tolerate any PO intake. Denies hematemesis CT chest/abdomen/pelvis showed stable aneurysm without acute changes from prior study. Patient has mild epigastric tenderness.Her symptoms are likely due to Peptic ulcer disease.We will startt patient on PPI and sucrafate.Due to extensive H/O CAD, we will monitor patient in telemetry, we will get serial troponins and will get cardiology consult. Management plan was discussed in detail with patient. Education was provided.
[2017-12-18] MEDS: Insulin Reg-MEDIUM-Coverage SC SCH (23:21)
--- NOTE | 2017-12-18 23:31 | CARD ---
APPROVED REPORT Date of service: 12/18/2017 EKG Measurement Heart [id number] <Conclusion> Sinus bradycardia with 1st degree AV block Left axis deviation Incomplete right bundle branch block Nonspecific ST abnormality Abnormal ECG
[2017-12-18] MEDS: Oxycodone/Acetaminophen 5/325 mg Tab PO PRN (23:54)
[2017-12-19 03:54] LABS: BASO # 0.01 K/mm3 (0.0-2.0); BASO % 0.2 % (0.0-3.0); EOS # 0.2 (0.0-0.7); EOS % 3.1 % (1.5-5.0); GRAN # 2.51 (1.4-6.5); HEMOGLOBIN 12.3 g/dL (12.0-16.0); LYMPH # 2.4 (1.2-3.4); LYMPH % 42.5 % (22.0-35.0); MEAN CELL VOLUME 87.2 fl (80.0-105.0); MEAN CORPUSCULAR HGB CONC 32.1 g/dl (31.0-37.0); MEAN PLATELET VOLUME 9.9 fl (7.0-11.0); MONO # 0.5 (0.1-0.6); MONO % 9.2 % (1.0-6.0); RBC 4.39 10^6/uL (3.5-6.1); RED CELL DISTRIBUTION WIDTH 14.6 % (11.5-14.5); WHITE BLOOD COUNT 5.6 10^3/ul (4.5-11.0)
[2017-12-19 04:00] LABS: ALB/GLOB RATIO 1.1 (1.1-1.8); ALBUMIN 3.5 g/dL (3.0-4.8); ALT/SGPT 22 U/L (7-56); AST/SGOT 26 U/L (14-36); BLOOD UREA NITROGEN 17 mg/dL (7-21); CALCIUM 9.1 mg/dL (8.4-10.5); GFR NON-AFRICAN AMERICAN 47
[2017-12-19 04:10] LABS: TROPONIN I < 0.01 ng/mL
[2017-12-19 06:55] VITALS: O2SAT 95
[2017-12-19] MEDS: Oxycodone/Acetaminophen 5/325 mg Tab PO PRN ×2 (07:22→12:33)
[2017-12-19] MEDS: Insulin Reg-MEDIUM-Coverage SC SCH ×2 (09:03→11:35)
[2017-12-19] MEDS ORDERED: Potassium Chloride 10 mEq ER Tab PO SCH (10:00)
[2017-12-19] MEDS ORDERED: Non Formulary Medication (Dexlansoprazole [Dexilant] 60 MG) PO SCH (10:00)
--- NOTE | 2017-12-19 10:28 | CARD ---
APPROVED REPORT Date of service: 12/19/2017 EKG Measurement Heart [id number] <Conclusion> Sinus rhythm with marked sinus arrhythmia with 1st degree AV block with occasional premature atrial complexes Left anterior fascicular block Nonspecific T wave abnormality Prolonged QT Abnormal ECG
--- NOTE | 2017-12-19 13:15 | CP.PCM.DIS ---
Provider - Provider Date of Admission: 12/18/17 17:42 Attending physician: Bebeto Aaron MD Time Spent in preparation of Discharge (in minutes): 45 Diagnosis - Discharge Diagnosis (1) Epigastric abdominal pain Status: Resolved Priority: Medium (2) Nausea & vomiting Status: Resolved Priority: Medium (3) Coronary artery disease Status: Chronic Priority: High (4) Diabetes Status: Chronic Priority: High (5) Hypertension Status: Chronic Priority: Medium (6) Chronic back pain Status: Chronic Priority: Medium Hospital Course - Lab Results Lab Results: Most Recent Lab Values WBC 5.6 10^3/ul (4.5-11.0) 12/19/17 03:30 RBC 4.39 10^6/uL (3.5-6.1) 12/19/17 03:30 Hgb 12.3 g/dL (12.0-16.0) 12/19/17 03:30 Hct 38.3 % (36.0-48.0) 12/19/17 03:30 MCV 87.2 fl (80.0-105.0) 12/19/17 03:30 MCH 28.0 pg (25.0-35.0) 12/19/17 03:30 MCHC 32.1 g/dl (31.0-37.0) 12/19/17 03:30 RDW 14.6 % (11.5-14.5) H 12/19/17 03:30 Plt Count 144 10^3/uL (120.0-450.0) 12/19/17 03:30 MPV 9.9 fl (7.0-11.0) 12/19/17 03:30 Gran % 45.0 % (50.0-68.0) L 12/19/17 03:30 Lymph % (Auto) 42.5 % (22.0-35.0) H 12/19/17 03:30 [place] % (Auto) 9.2 % (1.0-6.0) H 12/19/17 03:30 Eos % (Auto) 3.1 % (1.5-5.0) 12/19/17 03:30 Baso % (Auto) 0.2 % (0.0-3.0) 12/19/17 03:30 Gran # 2.51 (1.4-6.5) 12/19/17 03:30 Lymph # (Auto) 2.4 (1.2-3.4) 12/19/17 03:30 [place] # (Auto) 0.5 (0.1-0.6) 12/19/17 03:30 Eos # (Auto) 0.2 (0.0-0.7) 12/19/17 03:30 Baso # (Auto) 0.01 K/mm3 (0.0-2.0) 12/19/17 03:30 PT 15.0 SECONDS (9.4-12.5) H 12/18/17 15:30 INR 1.31 12/18/17 15:30 APTT 32.5 Seconds (25.1-36.5) 12/18/17 15:30 Sodium 143 mmol/L (132-148) 12/19/17 03:30 Potassium 3.8 mmol/L (3.6-5.0) 12/19/17 03:30 Chloride 103 mmol/L (98-107) 12/19/17 03:30 Carbon Dioxide 33 mmol/L (21-33) 12/19/17 03:30 Anion Gap 10 (10-20) 12/19/17 03:30 BUN 17 mg/dL (7-21) 12/19/17 03:30 Creatinine 1.1 mg/dl (0.7-1.2) 12/19/17 03:30 Est GFR ( Amer) 57 12/19/17 03:30 Est GFR (Non-Af Amer) 47 12/19/17 03:30 POC Glucose (mg/dL) 165 mg/dL (65-110) H 12/19/17 11:08 Random Glucose 105 mg/dL (70-110) 12/19/17 03:30 Calcium 9.1 mg/dL (8.4-10.5) 12/19/17 03:30 Phosphorus 3.9 mg/dL (2.5-4.5) 12/19/17 03:30 Magnesium 1.9 mg/dL (1.7-2.2) 12/19/17 03:30 Total Bilirubin 0.4 mg/dL (0.2-1.3) 12/19/17 03:30 AST 26 U/L (14-36) 12/19/17 03:30 ALT 22 U/L (7-56) 12/19/17 03:30 Alkaline Phosphatase 74 U/L (38-126) 12/19/17 03:30 Lactate Dehydrogenase 557 U/L (333-699) 12/18/17 15:30 Total Creatine Kinase 220 U/L (35-230) 12/18/17 15:30 Troponin I < 0.01 ng/mL 12/19/17 03:30 NT-Pro-B Natriuret Pep 1330 pg/mL (0-450) H 12/18/17 15:30 Total Protein 6.7 g/dL (5.8-8.3) 12/19/17 03:30 Albumin 3.5 g/dL (3.0-4.8) 12/19/17 03:30 Globulin 3.2 gm/dL 12/19/17 03:30 Albumin/Globulin Ratio 1.1 (1.1-1.8) 12/19/17 03:30 - Hospital Course Hospital Course: Patient is an 82 yo female with a significant cardiac history who was admitted for evaluation and treatment of epigastric pain with associated nausea and vomiting. With the use of physical examinations, lab work, and imaging the patient was diagnosed with and treated for her history of PUD along with the patients chronic medical conditions. Though the patient's history is consistent with PUD a cardiac etiology was ruled out. During their hospital stay the patient was seen by cardiology (Dr. Thomson who was covering Dr. Rodriguez's service) whose recommendations were both appreciated and utilized in the care for this patient. Dr. Thomson ruled out a cardiac etiology of her pain and did not recommend any acute cardiac intervention at this time. During their hospital stay the patient underwent an EKG, chest xray, chest/abdomen/pelvis CT, and echocardiogra m which were reviewed, appreciated, and utilized in the management of the patients clinical course. Chest xray revealed severe cardiomegaly, median sternotomy wires, and an ectatic aorta. The CT chest, abdomen/pelvis revealed stable findings with respect to ascending thoracic aorta, cardiomegaly, no evidence of acute significant cardiovascular disease, stable findings main pulmonary artery consistent with pulmonary arterial hypertension, and stable findings aorto bi-iliac endo graft. Echocardiogram official report pending at time of discharge however cardiology has cleared patient for discharge. Patient was treated with elquis, aspirin, atorvastatin, lexparo, lasix, insulin, metorprolol, protonix, carafate, valsartan amongst other empiric/therapeutic medications. At this time the patient is medically stable for discharge. Patient understands and appreciates discharge plan. Patient instructed to follow up with primary care physicians and referrals within three to five days from discharge. Furthermore, the patient is instructed to take medications as prescribed and to return to emergency room for evaluation of intractable headache, fever, chills, dizziness, chest pain, shortness of breath, abdominal pain, nausea, vomiting, diarrhea, constipation, and urinary symptoms. This is a brief summary of the patients hospital course. Please see patient chart for full details. Discharge Exam - Additional Findings Additional findings: - Head Exam Head Exam: ATRAUMATIC, NORMAL INSPECTION - Eye Exam Eye Exam: EOMI, Normal appearance, PERRL - ENT Exam ENT Exam: Mucous Membranes Moist, Normal Exam - Neck Exam Neck exam: Positive for: Normal Inspection - Respiratory Exam Respiratory Exam: Clear to Auscultation Bilateral, NORMAL BREATHING PATTERN - Cardiovascular Exam Cardiovascular Exam: REGULAR RHYTHM, +S1, +S2 - GI/Abdominal Exam GI & Abdominal Exam: Normal Bowel Sounds, Soft absent: Distended, Rebound, Rigid - Extremities Exam Extremities exam: Positive for: normal inspection, pedal edema (R>L), pedal pulses present - Back Exam Back exam: NORMAL INSPECTION - Neurological Exam Neurological exam: Alert, Oriented x3 - Psychiatric Exam Psychiatric exam: Normal Affect, Normal Mood - Skin Skin Exam: Dry, Intact, Normal Color, Warm Discharge Plan - Follow Up Plan Condition: FAIR Disposition: HOME/ ROUTINE Referrals: Eduardo Rodriguez MD [Staff Provider] -
[2017-12-19 13:18] VITALS: RESP 18; TEMP 98.7
[2017-12-19 14:23] VITALS: BP 152/80
[2017-12-19 15:00] VITALS: PULSE 67
--- NOTE | 2017-12-20 00:20 | CON ---
DATE: 12/19/2017 REASONREASON FOR DICTATION: Covering Dr. Eduardo Rodriguez. REASON FOR CONSULTATION: Chest pain. BRIEF CLINICAL HISTORY: This is an 82-year-old female with past medical history of CAD, status post CABG, status post stent, aortic aneurysm repair, type 2 diabetes, aortic valve replacement, hypertension, chronic back pain, came in with epigastric pain. Denies any chest pain. PAST MEDICAL HISTORY: Significant for diabetes, hypertension, hyperlipidemia, abdominal aortic aneurysm, status post endovascular stent, history of coronary artery disease, history of CABG, history of stent by Dr. Rodriguez. ALLERGIES: SHELLFISH, IODINE CONTAINING CONTRAST, TOMATO, WELL. CURRENT MEDICATIONS: Patient is taking valsartan 320 mg daily, sucralfate, Januvia, metoprolol tartrate, ibuprofen, Lasix, Dexilant, aspirin, and Xanax. REVIEW OF SYSTEMS: As per HPI. RECENT CARDIAC WORKUP: Patient had echocardiography done on 12/05/2015 that revealed good LV function, calcified aortic valve, no stenosis, dilated LA, RA, mid aortic regurgitation, mild tricuspid regurgitation, mild to moderate pulmonary hypertension dated . PHYSICAL EXAMINATION: VITAL SIGNS: Temperature afebrile, heart rate 54, blood pressure 126/77. HEENT: PERRLA, Extraocular muscles intact. NECK: Supple. No carotid bruits or thyromegaly. CHEST: Clear to auscultation. HEART: S1 and S2, regular. ABDOMEN: Soft. EXTREMITIES: Clubbing and cyanosis negative. LABORATORY DATA: Blood workup as follows. WBC 5.6, hemoglobin 12.3, hematocrit 38.3, platelet count 144. Chemistry shows sodium 140, potassium 3.8, 103, CO2 33, anion gap of 10, BUN 17, creatinine 1.1. Troponin remains negative. EKG showed sinus rhythm, first-degree AV block, no acute ST-T changes noted. IMPRESSION: This is an 82-year-old female with past medical history significant for diabetes, hypertension, hyperlipidemia, coronary artery disease, status post aortic valve replacement, status post aortic arch replacement, history of coronary artery disease, history of abdominal aortic aneurysm, endovascular status post repair, admitted with epigastric pain. So far no evidence of acute myocardial infarction. RECOMMENDATIONS: Continue Sucralfate, continue Eliquis. Patient was at home. Continue baseline medications. Follow up serial troponin, if remains negative, patient is okay to be discharge, atypical chest pain. Follow up with Dr. Rodriguez. Bebeto Thomson MD
[2017-12-25] MEDS ORDERED: Ergocalciferol 50,000 Intl Units Cap PO SCH (10:00)
== END 2017-12-19 16:52 | disposition home or self-care (01) ==
LOC: ED 15:11 → ERH 17:42 → 2RNO 22:00
PROVIDERS: ADMIT Internal Medicine; ATTEND Internal Medicine
DX: R10.13 Epigastric pain (principal); R11.2 Nausea with vomiting, unspecified; I25.10 Atherosclerotic heart disease of native coronary artery without angina pectoris; E11.9 Type 2 diabetes mellitus without complications; I10 Essential (primary) hypertension; G89.29 Other chronic pain; E78.5 Hyperlipidemia, unspecified; I27.21 Secondary pulmonary arterial hypertension; I77.819 Aortic ectasia, unspecified site; K21.9 Gastro-esophageal reflux disease without esophagitis; R07.89 Other chest pain; Z79.01 Long term (current) use of anticoagulants; Z79.82 Long term (current) use of aspirin; Z86.711 Personal history of pulmonary embolism; Z86.79 Personal history of other diseases of the circulatory system; Z87.11 Personal history of peptic ulcer disease; Z95.1 Presence of aortocoronary bypass graft; Z95.2 Presence of prosthetic heart valve; Z95.5 Presence of coronary angioplasty implant and graft; Z91.041 Radiographic dye allergy status; Z91.013 Allergy to seafood; Z88.8 Allergy status to other drugs, medicaments and biological substances; Z91.018 Allergy to other foods; R00.1 Bradycardia, unspecified; F41.9 Anxiety disorder, unspecified
CPT/HCPCS: 36415; 71045; 71250; 74176; 80053; 82550; 82948; 83615; 83735; 83880; 84100; 84484; 85025; 85610; 85730; 93005; 93306; 99285; C9113; G0378

== ENCOUNTER 2018-05-20 06:55 | Outpatient (CLI) | payer MEDICARE, MEDICAID | END 2018-05-20 06:56 | disposition home or self-care (01) | LOC: CARDIO 06:55 ==

== ENCOUNTER 2018-06-02 07:03 | Day surgery (SDC) | payer MEDICARE, MEDICAID ==
[2018-05-28 11:05] VITALS: BMI 35.9
[2018-06-02 07:27] LABS: BASO # 0.01 K/mm3 (0.0-2.0); BASO % 0.2 % (0.0-3.0); EOS # 0.2 (0.0-0.7); EOS % 3.5 % (1.5-5.0); HEMOGLOBIN 12.3 g/dL (12.0-16.0); LYMPH # 1.7 (1.2-3.4); LYMPH % 31.2 % (22.0-35.0); MEAN CELL VOLUME 87.7 fl (80.0-105.0); MEAN CORPUSCULAR HEMOGLOBIN 27.5 pg (25.0-35.0); MEAN CORPUSCULAR HGB CONC 31.4 g/dl (31.0-37.0); MEAN PLATELET VOLUME 9.9 fl (7.0-11.0); MONO # 0.4 (0.1-0.6); MONO % 7.2 % (1.0-6.0); RBC 4.47 10^6/uL (3.5-6.1); RED CELL DISTRIBUTION WIDTH 16.1 % (11.5-14.5); WHITE BLOOD COUNT 5.4 10^3/uL (4.5-11.0)
[2018-06-02 07:36] LABS: INR 1.12; PARTIAL THROMBOPLASTIN TIME 31.6 Seconds (26.9-38.3); PROTHROMBIN TIME 12.6 SECONDS (9.4-12.5)
[2018-06-02 07:37] LABS: CALCIUM 9.7 mg/dL (8.4-10.5)
[2018-06-02] MEDS ORDERED: Lidocaine PF 2% (5 ml) Inj (For Cardiac Arrhy) ONE (08:38)
[2018-06-02] MEDS ORDERED: Iohexol 350mgl/ml 50 ML ONE (08:39)
[2018-06-02] MEDS ORDERED: Iodixanol 320 MG/ML 200 ML BOTTLE IV ONE (08:39)
[2018-06-02] MEDS ORDERED: DiphenhydrAMINE 50 mg/ml Inj ONE (09:09)
[2018-06-02] MEDS ORDERED: Famotidine 20mg/50ml 20 MG/50 ML BAG IVPB ONE (09:10)
[2018-06-02] MEDS ORDERED: Midazolam 2 MG/2 ML VIAL ONE ×2 (09:29→09:41)
[2018-06-02] MEDS ORDERED: Sodium Chloride 0.9% 1,000 ML IV SCH (10:00)
[2018-06-02 10:30] VITALS: TEMP 98.1
[2018-06-02 10:45] VITALS: RESP 18
[2018-06-02] MEDS ORDERED: Oxycodone/Acetaminophen 5/325 mg Tab PO ONE ×2 (12:47→13:09)
--- NOTE | 2018-06-02 12:50 | CARDCATH ---
PROCEDURE DATE: 06/02/2018 HISTORY: The patient is an 82-year-old woman who presents with chest pain as well as an abnormal stress test. Past medical history includes peripheral vascular disease, as well as well as an aortic valve replacement in the past, because of this, cardiac catheterization was recommended. PROCEDURE: Left heart catheterization with coronary arteriography, left ventriculogram, supra-aortic valvular injection. The right femoral artery was cannulated with 6-Bur[place] sheath. There were no complications. I performed moderate sedation which included the presence of an independent trained observer that assisted in monitoring the patient's level of consciousness and physiologic status. After administration of Versed and fentanyl, my intra service time was 30 minutes. The findings on catheterization revealed a left ventricle that contracted normally. Estimated ejection fraction is 70%. Supra-aortic valvular injection revealed a markedly dilated ascending aorta without aortic insufficiency. The patient had a right dominant circulation. The RCA revealed diffuse atherosclerosis without critical lesions. The left main artery was unremarkable. The LAD and diagonal vessels revealed diffuse atherosclerosis without critical lesions. The diagonal vessel had a 50-60% stenosis in the midportion. The circumflex artery and obtuse marginal branches were free of significant disease. The Angio-Seal was used to close the femoral artery site. The patient tolerated procedure well. In summary, the procedure revealed diffuse atherosclerosis in the coronary tree with 50-60% stenosis in the midportion of the diagonal vessel. LV function is normal with an EF of 70%. Supra-aortic valvular injection revealed no aortic insufficiency. Given these findings, the patient's treatment will be continued medical therapy. No stents were necessary. Emphasis needs to be at controlling her blood pressure which is difficult to control. Eduardo Rodriguez MD
[2018-06-02] MEDS ORDERED: Oxycodone/Acetaminophen 5/325 mg Tab ONE (13:08)
[2018-06-02 13:10] VITALS: O2SAT 99
[2018-06-02 13:48] VITALS: BP 162/90; PULSE 67
== END 2018-06-02 16:30 | disposition home or self-care (01) ==
LOC: CATH 07:03
PROVIDERS: ATTEND Internal Medicine Cardiovascular Disease
DX: I25.10 Atherosclerotic heart disease of native coronary artery without angina pectoris (principal); I73.9 Peripheral vascular disease, unspecified; Z95.2 Presence of prosthetic heart valve
CPT/HCPCS: 36415; 80048; 85025; 85610; 85730; 86850; 86900; 93458; 99152; C1760; C1769; C2629; J0360; J1200; J1644; J2250; J2930; J3010; J7030; Q9966; Q9967